=== PATIENT | female | born 1980 | race Caucasian/White ===

== ENCOUNTER 2016-10-08 16:08 | Emergency (ER) | payer OTHER ==
[~2016-10-08] VITALS: Ht 162.6 cm; Wt 64.8 kg
[~2016-10-08 16:08] MED LIST: AMLO5TAB2 PO; IBUP800T23 PO
[2016-10-08 16:23] VITALS: BP 132/88; PULSE 68; RESP 16; TEMP 97.8; O2SAT 100
--- NOTE | 2016-10-08 16:38 | PD ---
HPI Chief Complaint: Injury Time Seen by Provider: 16:35 Travel History International Travel<30 days: No Contact w/Intl Traveler<30days: No Traveled to known affect area: No History of Present Illness HPI 36-year-old right-hand dominant female presents to the ED for evaluation of 8/ 10 left wrist pain. Onset yesterday afternoon. Patient states that she was attempting to steal a car that the parasternal had gone out on when she felt a pain in the lateral aspect of her left wrist. She states she feels "like a bone is rubbing." She denies numbness, tingling, weakness. She endorses pain with attempted range of motion. She denies loss of strength. She denies previous injury to this same area. He states took ibuprofen last night with no improvement of her pain. PFSH Past Medical History Autoimmune Disease: Yes (RHEUMATOID ARTHRITIS) Cardiovascular Problems: Yes (htn on meds) Diminished Hearing: No Hypertension: Yes ?: Not LMP: 10/07/16 Past Surgical History Other Surgery: Yes (LEFT BREAST CYST REMOVED) Social History Alcohol Use: Yes (1-2 X PER YEAR) Tobacco Use: No Substance Use: No Allergies-Medications (Allergen,Severity, Reaction): Coded Allergies: Blistex (Verified Allergy, Severe, BLISTERS, 10/08/16) Reported Meds & Prescriptions Reported Meds & Active Scripts Active Flexeril (Cyclobenzaprine HCl) 7.5 Mg Tab 7.5 Mg PO TID Ibuprofen 800 Mg Tab 800 Mg PO Q8H Reported Ibuprofen 800 Mg Tab 800 Mg PO Q8H PRN Amlodipine (Amlodipine Besylate) 5 Mg Tab 5 Mg PO DAILY Review of Systems Except as stated in HPI: all other systems reviewed are Neg Physical Exam Narrative GENERAL: Well-nourished, well-developed white female in no acute distress. SKIN: Focused skin assessment warm/dry. HEAD: Normocephalic. EYES: No scleral icterus. No injection or drainage. NECK: Supple, trachea midline. No JVD or lymphadenopathy. CARDIOVASCULAR: Regular rate and rhythm without murmurs, gallops, or rubs. RESPIRATORY: Breath sounds equal bilaterally. No accessory muscle use. GASTROINTESTINAL: Abdomen soft, non-tender, nondistended. MUSCULOSKELETAL: No cyanosis, or edema. Focused left upper extremity exam: 2+ radial pulse. No ecchymosis or edema. Tender to palpation of the mid shaft of the lateral aspect of the ulna. No snuffbox tenderness. Supination elicits pain. Patient is able to flex and extend the fingers, wrist and elbow without pain. Sensation intact to light touch and cap refill less than 2 seconds on each digit. BACK: Nontender without obvious deformity. No CVA tenderness. Data Data Last Documented VS Vital Signs Date Time Temp Pulse Resp B/P Pulse Ox O2 Delivery O2 Flow Rate FiO2 10/08/16 16:23 97.8 68 16 132/88 100 Orders Forearm (2vws) (10/08/16 16:34) Wrist, Complete ([id number]) (10/08/16 16:34) Ice/Cold Pack (10/08/16 16:34) ^ Noé Bandage (10/08/16 17:17) MDM Medical Decision Making Medical Screen Exam Complete: Yes Emergency Medical Condition: Yes Differential Diagnosis Contusion versus muscular skeletal pain versus ligamentous injury versus fracture versus other Narrative Course 36-year-old right-hand dominant female presents to the ED for evaluation of 8/ 10 left wrist pain. Onset yesterday afternoon. Patient states that she was attempting to steal a car that the parasternal had gone out on when she felt a pain in the lateral aspect of her left wrist. She states she feels "like a bone is rubbing." She denies numbness, tingling, weakness. She endorses pain with attempted range of motion. She denies loss of strength,previous injury to this same area. Vitals reviewed. Physical exam reveals a 2+ radial pulse. No ecchymosis or edema. Tender to palpation of the mid shaft of the lateral aspect of the ulna. No snuffbox tenderness. Supination elicits pain. Patient is able to flex and extend the fingers, wrist and elbow without pain. Sensation intact to light touch and cap refill less than 2 seconds on each digit. Ice pack was applied. X-rays of the wrist and forearm negative for acute bony injury per radiology read. This is musculoskeletal pain possible muscle strain. Noé wrap was applied. She was prescribed a short course of anti -inflammatories and muscle relaxants. She is instructed to the medication as prescribed, rest, ice, elevate the extremity, follow up with the primary care provider. She indicated understanding of instructions. She is agreeable to the plan of care. She is stable and discharged home. Diagnosis Primary Impression: Musculoskeletal pain of left upper extremity Referrals: Orthopedist Patient Instructions: General Instructions, Musculoskeletal Pain (ED) Additional Instructions: Rest, ice, elevate the extremity. Apply ice no longer than 10-15 minutes per hour a few times a day. 800 mg ibuprofen up to 3 times a day as needed for pain. Flexeril up to 3 times a day as needed for muscle spasm. Do not drive while taking Flexeril. Return to normal, gentle activity as tolerated. Follow up with orthopedist or your primary care provider. Return to the ED for any urgent or emergent medical condition. Scripts Cyclobenzaprine (Flexeril)7.5 Mg Tab7.5 Mg PO TID #12 TAB Ref 0 Prov:Jimmy Brewer MD 10/08/16 Ibuprofen 800 Mg [id number] Mg PO Q8H #15 TAB Ref 0 Prov:Jimmy Brewer MD 10/08/16 Disposition: 01 DISCHARGE HOME Condition: Stable Azeb Ulloa Oct 08, 2016 16:38
--- NOTE | 2016-10-08 17:10 | RADHPO ---
EXAM DATE/TIME: 10/08/2016 16:39 [facility] COMPARISON: No previous studies available for comparison. INDICATIONS : Left distal forearm pain after driving. MEDICAL HISTORY : None. SURGICAL HISTORY : None. ENCOUNTER: Initial ACUITY: 2 days PAIN SCORE: 9/10 LOCATION: Left upper extremity FINDINGS: Two view examination of the left forearm demonstrates no evidence of fracture or dislocation. Bony m ineralization is normal. The soft tissue structures are intact. CONCLUSION: No acute disease. Evelio Perera MD FACR on October 08, 2016 at 17:08 Board Certified Radiologist. This report was verified electronically.
--- NOTE | 2016-10-08 17:11 | RADHPO ---
EXAM DATE/TIME: 10/08/2016 16:44 [facility] COMPARISON: No previous studies available for comparison. INDICATIONS : Left medial wrist pain after driving. MEDICAL HISTORY : None. SURGICAL HISTORY : None. ENCOUNTER: Initial ACUITY: 2 days PAIN SCORE: 9/10 LOCATION: Left upper extremity FINDINGS: Three view examination of the left wrist demonstrates no soft tissue swelling, dislocation, or fractu re. The carpal bones are in normal alignment. The joint spaces are maintained. Bony mineralization is normal. CONCLUSION: Negative for acute process. Evelio Perera MD FACR on October 08, 2016 at 17:08 Board Certified Radiologist. This report was verified electronically.
[2016-10-08] MEDS ORDERED: CYCL7.5T33 PO (17:18)
[2016-10-08] MEDS ORDERED: IBUP800T23 PO (17:18)
[2016-11-05] MEDS ORDERED: AMLO5TAB2 PO (09:57)
[2016-11-05] MEDS ORDERED: IBUP800T23 PO (09:57)
== END 2016-10-08 17:29 | disposition home or self-care (01) ==
LOC: PHEFT 16:08
DX: M79.1 Myalgia (principal); M06.9 Rheumatoid arthritis, unspecified; I10 Essential (primary) hypertension
CPT/HCPCS: 73090; 73110; 99283

== ENCOUNTER → 2016-11-09 | Outpatient (CLI) | payer SELFPAY ==
[2016-11-09 10:13] LABS: MEAN CORPUSCULAR HGB CONC 29.1 % (32.0-36.0)
[2016-11-09 10:44] LABS: AUTOMATED NEUTROPHIL # 4.7 TH/MM3 (1.8-7.7); BASOPHIL # 0.1 TH/MM3 (0-0.2); BASOPHIL % 0.8 % (0.0-2.0); EOSINOPHIL # 0.2 TH/MM3 (0-0.4); LYMPH % 24.5 % (9.0-44.0); LYMPHOCYTE # 1.8 TH/MM3 (1.0-4.8); MEAN CELL VOLUME 65.2 FL (80.0-100.0); MEAN CORPUSCULAR HEMOGLOBIN 18.9 PG (27.0-34.0); MONO % 8.5 % (0.0-8.0); NEUT % 63.2 % (16.0-70.0); PLATELET COUNT 200 TH/MM3 (150-450); RED BLOOD COUNT 4.91 MIL/MM3 (4.00-5.30); RED CELL DISTRIBUTION WIDTH 17.9 % (11.6-17.2); WHITE BLOOD COUNT 7.4 TH/MM3 (4.0-11.0)
[2016-11-09 10:49] LABS: HEMO FLAGS AUTO DIFF
[2016-11-09 10:54] LABS: ALT (GPT) 17 U/L (10-53); ANION GAP 4 MEQ/L (5-15); AST (GOT) 15 U/L (15-37); BICARBONATE 27.8 MEQ/L (21.0-32.0); BLOOD UREA NITROGEN 9 MG/DL (7-18); CHLORIDE 108 MEQ/L (98-107); GLOMERULAR FILTRATION RATE 82 ML/MIN (>89); GLUCOSE,FASTING 94 MG/DL (74-99); POTASSIUM 3.8 MEQ/L (3.5-5.1); SODIUM (NA) 140 MEQ/L (136-145)
[2016-11-09 11:04] LABS: ALKALINE PHOSPHATASE 76 U/L (45-117); LDL CHOLESTEROL 106 MG/DL (0-99); TOTAL BILIRUBIN ADULT 0.4 MG/DL (0.2-1.0)
[2016-11-09 12:04] LABS: SCAN/DIFF AUTO DIFF CONFIRMED
== END ==
LOC: CLAB 10:08
PROVIDERS: ATTEND Nurse Practitioner Family
DX: I10 Essential (primary) hypertension (principal)
CPT/HCPCS: 36415; 80053; 80061; 84443; 85025

== ENCOUNTER → 2016-12-17 | Day surgery (SDC) | payer SELFPAY ==
[~2016-12-17] MED LIST changes: +BUPIVACAINE/EPINEPHRINE 0.5% PF 30 ML VIAL ONE; +LACTATED RINGER'S 1000 ML INJ 1,000 ML ONE; +MIDAZOLAM HCL 2 MG/2 ML VIAL ONE; +ONDANSETRON HCL 4 MG/2 ML VIAL IV PUSH ONE; +PROPOFOL 200 MG/20 ML AMP IV ONE; +ceFAZolin 2 GM PREMIX 50 ML ONE
--- NOTE | 2016-12-17 11:12 | TN ---
cc: AMANDA MALIK M.D. DATE OF SURGERY 12/17/2016 PREOPERATIVE DIAGNOSIS Intraductal papilloma left breast. POSTOPERATIVE DIAGNOSIS Intraductal papilloma left breast. PROCEDURE PERFORMED Needle-localized left breast lumpectomy. SURGEON Amanda Malik MD UNDERWRITING SUPPORT SPECIALIST Isidra Hunt MS-3 ANESTHESIA General LMA COMPLICATIONS None INDICATIONS FOR THE PROCEDURE Mr. Linares is a pleasant 36-year-old female who had a palpable mass in her left breast. She underwent imaging and was found to have an 8 mm mass. She underwent ultrasound guided biopsy and this was found to be the usual ductal hyperplasia, as well as an intraductal papilloma. Because of the papilloma was not completely excised, it was recommended she have a formal excision. The patient had some funding issues and was unable to schedule surgery for approximately one year. She recently returned to the office and she was evaluated for a needle-localized lumpectomy. The risks and benefits of this was discussed with her and she was agreeable. DETAILS The patient was identified, brought to the operating room, placed supine on the table. After adequate general anesthesia was achieved with LMA, the anterior chest and left breast was prepped and draped in standard surgical fashion. Quarter percent Marcaine injected in the skin and subcutaneous tissue around the areola. An infra-areolar incision was made about 3 o'clock to 6 o'clock. Subcutaneous tissues were dissected with sharp dissection. Next, the wire was grasped. All surrounding breast tissue was excised down to the level of the base of the wire. The wire was transected at the skin and the specimen was then pulled out. A short stitch was placed superior, long stitch was placed medial and the wire demarcated the lateral margin. Specimen was palpated. There was no obvious mass. The patient did have very dense fibroglandular breast tissue. Specimen was sent to radiology where Dr. Martínez called back stating the clip was within the specimen. Specimen was sent to pathology for analysis. The wound was copiously irrigated with normal saline solution. Lumpectomy cavity was then filled with quarter percent Marcaine. The wound was then closed in two layers using a 3-0 Vicryl and a 4-0 Monocryl. Sterile dressings were applied. The patient was awakened and brought to recovery in stable condition. MD EZEQUIEL De La Torre /10:30 AM /11:02 AM
== END | disposition home or self-care (01) ==
LOC: ESDC 06:14
PROVIDERS: ATTEND Surgery Trauma Surgery
DX: D24.2 Benign neoplasm of left breast (principal)
CPT/HCPCS: 00400; 19125; 88307; J0690; J2250; J2405; J3010; J7120

== ENCOUNTER → 2017-02-17 | Outpatient (CLI) | payer OTHER ==
[~2017-02-17] MED LIST changes: +ACYC200C66 PO; -BUPIVACAINE/EPINEPHRINE 0.5% PF 30 ML VIAL ONE; +HYDR-3133 PO; -LACTATED RINGER'S 1000 ML INJ 1,000 ML ONE; +MEGE40TA PO; -MIDAZOLAM HCL 2 MG/2 ML VIAL ONE; -ONDANSETRON HCL 4 MG/2 ML VIAL IV PUSH ONE; +PAXI30TA7 PO; -PROPOFOL 200 MG/20 ML AMP IV ONE; +TRAZ50TA12 PO; -ceFAZolin 2 GM PREMIX 50 ML ONE
[2017-02-17 10:47] LABS: MEAN CORPUSCULAR HGB CONC 29.8 % (32.0-36.0)
[2017-02-17 11:17] LABS: AUTOMATED NEUTROPHIL # 3.4 TH/MM3 (1.8-7.7); BASOPHIL # 0.1 TH/MM3 (0-0.2); EOSINOPHIL # 0.1 TH/MM3 (0-0.4); EOSINOPHIL % 2.6 % (0.0-4.0); HEMATOCRIT 29.1 % (35.0-46.0); HEMO FLAGS DIFF FINAL; LYMPH % 25.3 % (9.0-44.0); LYMPHOCYTE # 1.4 TH/MM3 (1.0-4.8); MEAN CELL VOLUME 62.9 FL (80.0-100.0); MEAN CORPUSCULAR HEMOGLOBIN 18.8 PG (27.0-34.0); NEUT % 60.1 % (16.0-70.0); PLATELET COUNT 172 TH/MM3 (150-450); RED BLOOD COUNT 4.62 MIL/MM3 (4.00-5.30); RED CELL DISTRIBUTION WIDTH 17.8 % (11.6-17.2); WHITE BLOOD COUNT 5.7 TH/MM3 (4.0-11.0)
[2017-02-17 11:43] LABS: ANION GAP 5 MEQ/L (5-15); AST (GOT) 13 U/L (15-37); BICARBONATE 26.7 MEQ/L (21.0-32.0); BLOOD UREA NITROGEN 7 MG/DL (7-18); CHLORIDE 108 MEQ/L (98-107); GLOMERULAR FILTRATION RATE 76 ML/MIN (>89); GLUCOSE,FASTING 90 MG/DL (74-99); POTASSIUM 3.4 MEQ/L (3.5-5.1); SODIUM (NA) 140 MEQ/L (136-145)
[2017-02-17 11:44] LABS: ALT (GPT) 17 U/L (10-53)
[2017-02-17 11:46] LABS: ALKALINE PHOSPHATASE 83 U/L (45-117); HDL CHOLESTEROL 39.2 MG/DL (40.0-60.0); LDL CHOLESTEROL 112 MG/DL (0-99); TOTAL BILIRUBIN ADULT 0.5 MG/DL (0.2-1.0)
[2017-02-17 16:48] LABS: HEMOGLOBIN A1a 1.2 %; HEMOGLOBIN A1b 1.3 %; HEMOGLOBIN Ao 86.7 %; HEMOGLOBIN LA1C 1.8 %; HEMOGLOBIN P3 3.2 %
== END ==
LOC: CLAB 10:37
PROVIDERS: ATTEND Obstetrics & Gynecology
DX: F32.9 Major depressive disorder, single episode, unspecified (principal); N93.8 Other specified abnormal uterine and vaginal bleeding
CPT/HCPCS: 36415; 80053; 80061; 83036; 84443; 85025

== ENCOUNTER → 2017-04-25 | Day surgery (SDC) | payer OTHER ==
--- NOTE | 2017-04-24 18:54 | MH ---
cc: PRUDENCE DUMONT M.D. DATE OF ADMISSION: 04/25/2017 HISTORY OF PRESENT ILLNESS: The patient is a 37-year-old white female, 0, who came to see me in my office in February with a last menstrual period of February 23. She is not sexually active and she had been reporting over the last four years that her periods have been coming every two to three weeks and at times lasting seven to eight days with very heavy flow. She did have some discomfort with them. She really had not had much workup done because she really did not have an insurance plan. What I did for her in our office is we had an ultrasound from April of 2016 which revealed the uterus to be6.8 x 4.9 x 3.6, heterogeneous echogenicity, no discrete masses. The endometrial complex was 14 mm. The right ovary had a small 1.3 cm cyst. The left ovary had about a 3.9 cm cyst. It was thought maybe it was a complex hemorrhagic cyst. She also underwent a thyroid screening test which came back normal. She also underwent an endometrial biopsy with an ECC that was benign and an endometrium that revealed features suggestive of a polyp. Based on these findings, I recommend that we do a MyoSure D&C for her so we can directionally visualize the endometrial cavity and remove any polyps that may be in there to see if that treats her problem, and she would like to proceed with that. PAST MEDICAL HISTORY: 1. Hypertension. 2. Anemia. 3. Peptic ulcer disease. 4. Anxiety. PAST SURGICAL HISTORY: Breast biopsy that was negative. MEDICATIONS CURRENTLY: 1. Amlodipine. 2. Vistaril. 3. Trazodone. 4. Paxil. ALLERGIES TO MEDICATIONS: None. SOCIAL HISTORY: No tobacco. No alcohol or drug use. She is single and works at [employer]. FAMILY HISTORY: Family history is testicular cancer, thyroid disease, hypertension and elevated cholesterol. GYNECOLOGIC HISTORY: No prior abnormal Pap. No history of STDs. OBSTETRICAL HISTORY: She is a 0. PHYSICAL EXAMINATION: WEIGHT: 130. VITAL SIGNS: Her blood pressure is 122/76, pulse is 76. BREASTS: Without masses, nodes or discharge. CHEST: Clear to auscultation bilaterally. CARDIAC: Regular rate and rhythm without murmurs, rubs or gallops. ABDOMEN: The abdomen is soft, nontender and nondistended. No hepatosplenomegaly. No costovertebral angle tenderness. No hernias. PELVIC EXAM: Vulva and vagina normal. External female genitalia without lesions. Vaginal vault without lesions. Cervix without lesions. The uterus palpates normal size. No adnexal masses or tenderness. ASSESSMENT: Dysfunctional uterine bleeding with biopsy suggestive of endometrial polyps. PLAN: MyoSure. MD MOHSEN Steele/JCC /6:28 PM /6:42 PM
[~2017-04-25] VITALS: Ht 162.6 cm; Wt 58.8 kg
[~2017-04-25] MED LIST changes: +ACETAMINOPHEN 1000 MG/100 ML 100 ML IV ONE; +CHLORHEXIDINE GLUCONATE 2 % 1 PACK (2 CLOTHS) TOPICAL PRN; +DEXAMETHASONE SOD PHOS 4 MG/ML VIAL IV ONE; +DO NOT ADM ANY ANTICOAGULANT DRUGS PRN; +INSULIN HUMAN REGULAR 1,000 UNITS/10 ML VIAL SQ PRN; +KETOROLAC TROMETHAMINE 30 MG/ML (IVP) VIAL IV PUSH ONE; +KETOROLAC TROMETHAMINE 30 MG/ML (IVP) VIAL ONE; +LACTATED RINGER'S 1000 ML INJ 1,000 ML IV ONE; +LACTATED RINGER'S 1000 ML IV PRN; +LIDOCAINE HCL 1% PF 5 ML AMPULE OTHER ONE; +METOPROLOL TARTRATE 25 MG TAB PO PRN; +MIDAZOLAM HCL 2 MG/2 ML VIAL IV ONE; +ONDANSETRON HCL 4 MG/2 ML VIAL IV PUSH ONE; +POVIDONE IODINE 5% (ANTISEPSIS KIT) 4 APPLICATIONS EACH NARE PRN; +PROPOFOL 200 MG/20 ML AMP IV ONE; +SODIUM CHLORID 0.9% 500 ML INJ 500 ML IV SCH; +SODIUM CHLORID 0.9% 500 ML IV PRN; +oxyCODONE/ACETAMINOPHEN 5 MG/325 MG TAB PO PRN
[2017-04-25 09:38] LABS: BASOPHIL # 0.1 TH/MM3 (0-0.2); BASOPHIL % 0.9 % (0.0-2.0); EOSINOPHIL # 0.3 TH/MM3 (0-0.4); HEMO FLAGS DIFF FINAL; LYMPH % 27.3 % (9.0-44.0); LYMPHOCYTE # 2.3 TH/MM3 (1.0-4.8); MEAN CELL VOLUME 63.1 FL (80.0-100.0); MEAN CORPUSCULAR HGB CONC 30.1 % (32.0-36.0); MONO % 10.3 % (0.0-8.0); NEUT % 58.5 % (16.0-70.0); PLATELET COUNT 188 TH/MM3 (150-450); RED BLOOD COUNT 5.07 MIL/MM3 (4.00-5.30); RED CELL DISTRIBUTION WIDTH 18.9 % (11.6-17.2); WHITE BLOOD COUNT 8.5 TH/MM3 (4.0-11.0)
[2017-04-25 14:39] VITALS: BP 104/61; PULSE 67; RESP 18; TEMP 98; O2SAT 99
--- NOTE | 2017-04-26 10:04 | MP ---
cc: PRUDENCE DUMONT M.D. DATE OF SURGERY 04/25/2017 PREOPERATIVE DIAGNOSIS Menorrhagia with dysfunctional uterine bleeding suspected endometrial polyp. POSTOPERATIVE DIAGNOSIS Menorrhagia with dysfunctional uterine bleeding suspected endometrial polyp. PROCEDURE PERFORMED MyoSure D&C. PERSHING MISSILE CREWMEMBER Dr. Prudence Dumont ANESTHESIA General by facemask FINDINGS IN SURGERY Included an endometrial polyp noted. BLOOD LOSS Minimal COMPLICATIONS No complications. PROCEDURE IN DETAIL After proper consents were obtained, the patient was taken to the operating room where general by face mask anesthesia was applied. She was then placed in the dorsolithotomy position, sterilely prepped and draped and her bladder was drained. At this time, a weighted speculum was placed in the vaginal vault. The anterior lip of the cervix was grasped with a single-tooth tenaculum. We sounded the uterus to about 8 cm. We then dilated the cervix serially to Eduarda dilator #18. We then placed the MyoSure scope using normal saline as a distending medium into the uterine cavity. Visualization revealed that she had a lower segment polyp all else was normal. We went ahead and use the MyoSure instrument to remove the polyp under direct visualization. I then sample the rest of the endometrial lining. Once that was done, we removed our instrumentation, counts were correct. Hemostasis was assured and the patient was stable to the recovery room. MD MOHSEN Steele/ROSY /7:52 AM /9:54 AM
== END | disposition home or self-care (01) ==
LOC: HSDC 08:32
PROVIDERS: ATTEND Obstetrics & Gynecology
DX: N92.0 Excessive and frequent menstruation with regular cycle (principal); N84.0 Polyp of corpus uteri
CPT/HCPCS: 00952; 58558; 84703; 85025; 88305; J0131; J1100; J1885; J2250; J2405; J3010; J7120

== ENCOUNTER 2017-06-15 12:24 | Emergency (ER) | payer OTHER ==
[~2017-06-15] VITALS: Ht 162.6 cm; Wt 59.0 kg
[~2017-06-15 12:24] MED LIST changes: -ACETAMINOPHEN 1000 MG/100 ML 100 ML IV ONE; -CHLORHEXIDINE GLUCONATE 2 % 1 PACK (2 CLOTHS) TOPICAL PRN; -DEXAMETHASONE SOD PHOS 4 MG/ML VIAL IV ONE; -DO NOT ADM ANY ANTICOAGULANT DRUGS PRN; +IBUP1TAB7 PO; -IBUP800T23 PO; -INSULIN HUMAN REGULAR 1,000 UNITS/10 ML VIAL SQ PRN; -KETOROLAC TROMETHAMINE 30 MG/ML (IVP) VIAL IV PUSH ONE; -KETOROLAC TROMETHAMINE 30 MG/ML (IVP) VIAL ONE; -LACTATED RINGER'S 1000 ML INJ 1,000 ML IV ONE; -LACTATED RINGER'S 1000 ML IV PRN; -LIDOCAINE HCL 1% PF 5 ML AMPULE OTHER ONE; -METOPROLOL TARTRATE 25 MG TAB PO PRN; -MIDAZOLAM HCL 2 MG/2 ML VIAL IV ONE; -ONDANSETRON HCL 4 MG/2 ML VIAL IV PUSH ONE; -POVIDONE IODINE 5% (ANTISEPSIS KIT) 4 APPLICATIONS EACH NARE PRN; -PROPOFOL 200 MG/20 ML AMP IV ONE; -SODIUM CHLORID 0.9% 500 ML INJ 500 ML IV SCH; -SODIUM CHLORID 0.9% 500 ML IV PRN; -oxyCODONE/ACETAMINOPHEN 5 MG/325 MG TAB PO PRN
[2017-06-15 12:27] VITALS: BP 157/76; PULSE 82; RESP 16; TEMP 98.3; O2SAT 99
[2017-06-15] MEDS ORDERED: VALA1TAB PO (12:54)
--- NOTE | 2017-06-15 12:58 | PD ---
HPI Chief Complaint: Skin Problem Time Seen by Provider: 12:46 Travel History International Travel<30 days: No Contact w/Intl Traveler<30days: No Traveled to known affect area: No History of Present Illness HPI 37-year-old female presents to the emergency department complaining of an outbreak of cold sores over the last 2 days. States she was in the sun 2 days ago and developed these blisters. Patient states that she takes acyclovir 200 mg twice a day for prevention however, this has not helped her current outbreak. Patient has not tried any medication for her symptoms. States that they are painful and are only located in the lips. Patient denies fever, chills. Denies any other medical complaint at this time. PFSH Past Medical History Hx Anticoagulant Therapy: No Anemia: Yes Autoimmune Disease: Yes (RHEUMATOID ARTHRITIS) Cancer: No Cardiovascular Problems: Yes (HTN) Diabetes: No Diminished Hearing: No Endocrine: No Genitourinary: Yes (polyps on uterus) Hepatitis: No Hiatal Hernia: No Hypertension: Yes Immune Disorder: No Musculoskeletal: No Neurologic: No Psychiatric: Yes (Dep and Anxiety) Respiratory: No Integumentary: Yes (herpes) Thyroid Disease: No Tetanus Vaccination: Unknown Influenza Vaccination: No ?: Not Past Surgical History Abdominal Surgery: No Cardiac Surgery: No Ear Surgery: No Endocrine Surgery: No Eye Surgery: No Genitourinary Surgery: No Gynecologic Surgery: No Joint Replacement: No Oral Surgery: No Thoracic Surgery: No Other Surgery: Yes (LEFT BREAST CYST REMOVED 2002 and december 2016) Social History Alcohol Use: Yes (1-2 X PER YEAR) Tobacco Use: No Substance Use: No Allergies-Medications (Allergen,Severity, Reaction): Coded Allergies: allantoin (Unverified Allergy, Severe, BLISTERS, 06/15/17) aloe vera (Unverified Allergy, Severe, BLISTERS, 06/15/17) camphor (Unverified Allergy, Severe, BLISTERS, 06/15/17) chamomile flower (Unverified Allergy, Severe, BLISTERS, 06/15/17) dimethicone (Unverified Allergy, Severe, BLISTERS, 06/15/17) herbal complex no. 57 (Unverified Allergy, Severe, BLISTERS, 06/15/17) homosalate (Unverified Allergy, Severe, BLISTERS, 06/15/17) menthol (Unverified Allergy, Severe, BLISTERS, 06/15/17) meradimate (Unverified Allergy, Severe, BLISTERS, 06/15/17) octinoxate (Unverified Allergy, Severe, BLISTERS, 06/15/17) octyl salicylate (Unverified Allergy, Severe, BLISTERS, 06/15/17) oxybenzone (Unverified Allergy, Severe, BLISTERS, 06/15/17) padimate O (Unverified Allergy, Severe, BLISTERS, 06/15/17) petrolatum,hydrophilic (Unverified Allergy, Severe, BLISTERS, 06/15/17) phenol (Unverified Allergy, Severe, BLISTERS, 06/15/17) Reported Meds & Prescriptions Reported Meds & Active Scripts Active Valacyclovir (Valacyclovir HCl) 1,000 Mg Tab 1,000 Mg PO BID 5 Days Acyclovir 200 Mg Cap 200 Mg PO BID PRN Trazodone (Trazodone HCl) 50 Mg Tab 50 Mg PO HS Paxil (Paroxetine HCl) 30 Mg Tab 40 Mg PO HS Amlodipine (Amlodipine Besylate) 5 Mg Tab 5 Mg PO DAILY Ibuprofen 800 Mg Tab 800 Mg PO Q8H PRN Reported Megestrol (Megestrol Acetate) 40 Mg Tab 40 Mg PO DAILY Hydroxyzine HCl 25 Mg Tab 25 Mg PO QID PRN Review of Systems Except as stated in HPI: all other systems reviewed are Neg Physical Exam Narrative GENERAL: Well-nourished, well-developed patient. SKIN: Focused skin assessment warm/dry. HEAD: Normocephalic. EYES: No scleral icterus. No injection or drainage. MOUTH: Mucous membranes moist, no lesions, tongue and gums appear normal. Lips with multiple bulla with mild erythematous base, no lymphangitic Spread, no edema. NECK: Supple, trachea midline. No JVD or lymphadenopathy. CARDIOVASCULAR: Regular rate and rhythm without murmurs, gallops, or rubs. RESPIRATORY: Breath sounds equal bilaterally. No accessory muscle use. MUSCULOSKELETAL: No cyanosis, or edema. BACK: Nontender without obvious deformity. No CVA tenderness. Data Data Last Documented VS Vital Signs Date Time Temp Pulse Resp B/P (MAP) Pulse Ox O2 Delivery O2 Flow Rate FiO2 06/15/17 12:27 98.3 82 16 157/76 (103) 99 Orders Orders Ed Discharge Order (06/15/17 12:58) [facility] Medical Decision Making Medical Screen Exam Complete: Yes Emergency Medical Condition: Yes Differential Diagnosis Herpes labialis versus aphthous ulcers versus cellulitis Narrative Course 37-year-old female presents to the emergency department complaining of an outbreak of cold sores over the last 2 days. States she was in the sun 2 days ago and developed these blisters, as she normally does. Patient states that she takes acyclovir 200 mg twice a day for prevention however, this has not helped her current outbreak. Patient has not tried any medication for her symptoms. States that they are painful and are only located in the lips. Patient denies fever, chills. Denies any other medical complaint at this time. Vital signs stable H&P consistent with cold sores without evidence of cellulitis. Patient to hold acyclovir and take valacyclovir at this medication has helped her before. Also advise her to use Abreva and Tylenol or Motrin per package instructions for pain relief. Follow-up with primary care physician within 2-3 days. Return to the emergency department for worsening or persistent symptoms. Diagnosis Primary Impression: Cold sore Referrals: Primary Care Physician Additional Instructions: Hold acyclovir until we have completed valacyclovir. Physical medication as prescribed. May use [id number] Abreva for your symptom relief. You may also use Tylenol or Motrin per package instructions for pain relief. Follow-up with your primary care physician within 2-3 days Scripts Valacyclovir (Valacyclovir) 1,000 Mg Tab 1000 MG PO BID for Mgmt Viral Infection for 5 Days, #1 TAB 0 Refills Prov: Jimmy Brewer MD 06/15/17 Disposition: 01 DISCHARGE HOME Condition: Stable Mariam Ahuja Jun 15, 2017 12:58
== END 2017-06-15 13:50 | disposition home or self-care (01) ==
LOC: PHEFT 12:24
DX: B00.1 Herpesviral vesicular dermatitis (principal); M06.9 Rheumatoid arthritis, unspecified; I10 Essential (primary) hypertension
CPT/HCPCS: 99283

== ENCOUNTER 2017-07-22 08:31 | Emergency (ER) | payer OTHER ==
[~2017-07-22] VITALS: Ht 162.6 cm; Wt 62.8 kg
[~2017-07-22 08:31] MED LIST changes: +VALA1TAB PO
[2017-07-22 08:35] VITALS: BP 118/59; PULSE 69; RESP 20; TEMP 98.1; O2SAT 100
--- NOTE | 2017-07-22 09:15 | PD ---
HPI Chief Complaint: Flank/Kidney Pain Time Seen by Provider: 08:53 Travel History International Travel<30 days: No Contact w/Intl Traveler<30days: No Traveled to known affect area: No History of Present Illness HPI 37-year-old female states she had a random cough Shani and since then has had significant pain over her right rib and felt like something popped. She states she's had a cracked rib before and this feels similar. She states she's been trying Motrin without relief. She denies any other concurrent complaints. She states she is around sick contacts but denies any other symptoms for herself. She denies any modifying factors other than movement. Duration is 3 days. Quality is sharp. Severity is severe per patient. PFSH Past Medical History Hx Anticoagulant Therapy: No Anemia: Yes Autoimmune Disease: Yes (RHEUMATOID ARTHRITIS) Cancer: No Cardiovascular Problems: Yes (HTN) Diabetes: No Diminished Hearing: No Endocrine: No Genitourinary: Yes (polyps on uterus) Hepatitis: No Hiatal Hernia: No Hypertension: Yes Immune Disorder: No Musculoskeletal: No Neurologic: No Psychiatric: Yes (Dep and Anxiety) Respiratory: No Integumentary: Yes (herpes) Thyroid Disease: No ?: Not LMP: CURRENT Past Surgical History Abdominal Surgery: No Cardiac Surgery: No Ear Surgery: No Endocrine Surgery: No Eye Surgery: No Genitourinary Surgery: No Gynecologic Surgery: No Joint Replacement: No Oral Surgery: No Thoracic Surgery: No Other Surgery: Yes (LEFT BREAST CYST REMOVED 2002 and december 2016) Social History Alcohol Use: Yes (1-2 X PER YEAR) Tobacco Use: No Substance Use: No Allergies-Medications (Allergen,Severity, Reaction): Coded Allergies: allantoin (Unverified Allergy, Severe, BLISTERS, 07/22/17) aloe vera (Unverified Allergy, Severe, BLISTERS, 07/22/17) camphor (Unverified Allergy, Severe, BLISTERS, 07/22/17) chamomile flower (Unverified Allergy, Severe, BLISTERS, 07/22/17) dimethicone (Unverified Allergy, Severe, BLISTERS, 07/22/17) herbal complex no. 57 (Unverified Allergy, Severe, BLISTERS, 07/22/17) homosalate (Unverified Allergy, Severe, BLISTERS, 07/22/17) menthol (Unverified Allergy, Severe, BLISTERS, 07/22/17) meradimate (Unverified Allergy, Severe, BLISTERS, 07/22/17) octinoxate (Unverified Allergy, Severe, BLISTERS, 07/22/17) octyl salicylate (Unverified Allergy, Severe, BLISTERS, 07/22/17) oxybenzone (Unverified Allergy, Severe, BLISTERS, 07/22/17) padimate O (Unverified Allergy, Severe, BLISTERS, 07/22/17) petrolatum,hydrophilic (Unverified Allergy, Severe, BLISTERS, 07/22/17) phenol (Unverified Allergy, Severe, BLISTERS, 07/22/17) Reported Meds & Prescriptions Reported Meds & Active Scripts Active Skelaxin (Metaxalone) 800 Mg Tablet 800 Mg PO HS Acyclovir 200 Mg Cap 200 Mg PO BID PRN Paxil (Paroxetine HCl) 30 Mg Tab 40 Mg PO HS Amlodipine (Amlodipine Besylate) 5 Mg Tab 5 Mg PO DAILY Ibuprofen 800 Mg Tab 800 Mg PO Q8H PRN Reported Hydroxyzine HCl 25 Mg Tab 25 Mg PO QID PRN Review of Systems Except as stated in HPI: all other systems reviewed are Neg Physical Exam Narrative GENERAL: Well-nourished, well-developed patient. SKIN: Warm and dry. HEAD: Normocephalic and atraumatic. EYES: No injection or drainage. ENT: No nasal drainage noted. NECK: Supple, trachea midline. CARDIOVASCULAR: Regular rate and rhythm RESPIRATORY: Breath sounds equal bilaterally. No accessory muscle use. GASTROINTESTINAL: Abdomen soft, non-tender, nondistended. EXTREMITIES: No edema. BACK: Nontender without obvious deformity. NEUROLOGICAL: Awake and alert. Motor and sensory grossly within normal limits. Normal speech. Data Data Last Documented VS Vital Signs Date Time Temp Pulse Resp B/P (MAP) Pulse Ox O2 Delivery O2 Flow Rate FiO2 07/22/17 08:56 20 07/22/17 08:35 98.1 69 118/59 (78) 100 Orders Orders Chest, Pa & Lat (07/22/17 ) Ed Discharge Order (07/22/17 09:31) Ketorolac Inj (Toradol Inj) (07/22/17 09:45) MDM Medical Decision Making Medical Screen Exam Complete: Yes Emergency Medical Condition: Yes Medical Record Reviewed: Yes (past history confirmed) Interpretation(s) cxr no acute Differential Diagnosis Rib fracture, contusion, pneumothorax, URI Narrative Course Will check chest x-ray and reevaluate cxr no acute, Patient denies any new complaints, all questions answered. Patient knows that follow up is incumbent on them and to return to the emergency room immediately if new or worsening symptoms develop. Patient given strict return precautions, vitals reviewed and are normal, agrees to further workup as an outpatient. Diagnosis Primary Impression: Chest wall pain Patient Instructions: General Instructions Additional Instructions: return as needed, alternate tylenol and motrin, follow with primary Med/Other Pt SpecificInfo: Prescription(s) given Scripts Metaxalone (Skelaxin) 800 Mg Tablet 800 MG PO HS, #15 Prov: Mi Thomas MD 07/22/17 Disposition: 01 DISCHARGE HOME Condition: Stable Mi Thomas MD Jul 22, 2017 09:15
--- NOTE | 2017-07-22 09:27 | RADRPT ---
EXAM DATE/TIME: 07/22/2017 09:10 [facility] COMPARISON: No previous studies available for comparison. INDICATIONS : Right side rib pain under breast, patient coughed the other day and heard a pop. MEDICAL HISTORY : None. SURGICAL HISTORY : None. ENCOUNTER: Initial ACUITY: 4 - 6 days PAIN SCORE: 10/10 LOCATION: Right ribs FINDINGS: PA and lateral views of the chest demonstrate the lungs to be symmetrically aerated without evidence of mass, infiltrate or effusion. The cardiomediastinal contours are unremarkable. Osseous structure s are intact. CONCLUSION: No acute disease. Evelio Perera MD FACR on July 22, 2017 at 9:24 Board Certified Radiologist. This report was verified electronically.
[2017-07-22] MEDS ORDERED: META800 PO (09:34)
[2017-07-22] MEDS ORDERED: KETOROLAC TROMETHAMINE 60 MG/2 ML (IM) VIAL IM ONE (09:45)
== END 2017-07-22 09:53 | disposition home or self-care (01) ==
LOC: PHED 08:31
DX: R07.89 Other chest pain (principal); R05 Cough; I10 Essential (primary) hypertension; M06.9 Rheumatoid arthritis, unspecified; F41.8 Other specified anxiety disorders; B00.9 Herpesviral infection, unspecified; Z86.2 Personal history of diseases of the blood and blood-forming organs and certain disorders involving the immune mechanism; Z87.448 Personal history of other diseases of urinary system
CPT/HCPCS: 71046; 96372; 99284; J1885

== ENCOUNTER 2017-09-14 12:23 | Emergency (ER) | payer OTHER ==
[~2017-09-14] VITALS: Ht 162.6 cm; Wt 63.0 kg
[~2017-09-14 12:23] MED LIST changes: -MEGE40TA PO; +META800 PO; -TRAZ50TA12 PO; -VALA1TAB PO
[2017-09-14 12:24] VITALS: BP 127/74; PULSE 64; RESP 16; TEMP 98.1; O2SAT 100
[2017-09-14] MEDS ORDERED: TRAZ50TA12 PO (12:34)
--- NOTE | 2017-09-14 12:50 | PD ---
HPI Chief Complaint: Cold / Flu Symptoms Time Seen by Provider: 12:35 Travel History International Travel<30 days: No Contact w/Intl Traveler<30days: No Traveled to known affect area: No History of Present Illness HPI 37-year-old female here with cough, nasal congestion, sore throat 1 week. Symptom severity is mild. No aggravating or alleviating factors. No sick contacts reported travel. Denies fever or chills. PFSH Past Medical History Hx Anticoagulant Therapy: No Anemia: Yes Autoimmune Disease: Yes (RHEUMATOID ARTHRITIS) Cancer: No Cardiovascular Problems: Yes (HTN) Diabetes: No Diminished Hearing: No Endocrine: No Genitourinary: Yes (polyps on uterus) Hepatitis: No Hiatal Hernia: No Hypertension: Yes Immune Disorder: No Musculoskeletal: No Neurologic: No Psychiatric: Yes (Dep and Anxiety) Respiratory: No Integumentary: Yes (herpes) Thyroid Disease: No ?: Not LMP: curently Past Surgical History Abdominal Surgery: No Cardiac Surgery: No Ear Surgery: No Endocrine Surgery: No Eye Surgery: No Genitourinary Surgery: No Gynecologic Surgery: No Joint Replacement: No Oral Surgery: No Thoracic Surgery: No Other Surgery: Yes (LEFT BREAST CYST REMOVED 2002 and december 2016) Social History Alcohol Use: Yes (1-2 X PER YEAR) Tobacco Use: No Substance Use: No Allergies-Medications (Allergen,Severity, Reaction): Coded Allergies: allantoin (Unverified Allergy, Severe, BLISTERS, 09/14/17) aloe vera (Unverified Allergy, Severe, BLISTERS, 09/14/17) camphor (Unverified Allergy, Severe, BLISTERS, 09/14/17) chamomile flower (Unverified Allergy, Severe, BLISTERS, 09/14/17) dimethicone (Unverified Allergy, Severe, BLISTERS, 09/14/17) herbal complex no. 57 (Unverified Allergy, Severe, BLISTERS, 09/14/17) homosalate (Unverified Allergy, Severe, BLISTERS, 09/14/17) menthol (Unverified Allergy, Severe, BLISTERS, 09/14/17) meradimate (Unverified Allergy, Severe, BLISTERS, 09/14/17) octinoxate (Unverified Allergy, Severe, BLISTERS, 09/14/17) octyl salicylate (Unverified Allergy, Severe, BLISTERS, 09/14/17) oxybenzone (Unverified Allergy, Severe, BLISTERS, 09/14/17) padimate O (Unverified Allergy, Severe, BLISTERS, 09/14/17) petrolatum,hydrophilic (Unverified Allergy, Severe, BLISTERS, 09/14/17) phenol (Unverified Allergy, Severe, BLISTERS, 09/14/17) Reported Meds & Prescriptions Reported Meds & Active Scripts Active Acyclovir 200 Mg Cap 200 Mg PO BID PRN Paxil (Paroxetine HCl) 30 Mg Tab 40 Mg PO HS Amlodipine (Amlodipine Besylate) 5 Mg Tab 5 Mg PO DAILY Ibuprofen 800 Mg Tab 800 Mg PO Q8H PRN Reported Trazodone (Trazodone HCl) 50 Mg Tab Unknown Dose PO HS Hydroxyzine HCl 25 Mg Tab 25 Mg PO QID PRN Review of Systems Except as stated in HPI: all other systems reviewed are Neg General / Constitutional: No: Fever Eyes: No: Visual changes HENT: Positive: Congestion Respiratory: Positive: Cough Physical Exam Narrative GENERAL: Alert and well-appearing 37-year-old female SKIN: Warm and dry. HEAD: Normocephalic. EYES: No injection or drainage. Ear/nose/throat: Reveal erythema without tonsillar hypertrophy or exudate. Uvula is midline. Airways patent. NECK: Supple CARDIOVASCULAR: Regular rate and rhythm RESPIRATORY: Breath sounds equal bilaterally. No accessory muscle use. No wheezing, rales, rhonchi. GASTROINTESTINAL: Abdomen soft, non-tender, nondistended. MUSCULOSKELETAL: No cyanosis, or edema. BACK: No CVA tenderness. Data Data Last Documented VS Vital Signs Date Time Temp Pulse Resp B/P (MAP) Pulse Ox O2 Delivery O2 Flow Rate FiO2 09/14/17 12:24 98.1 64 16 127/74 (91) 100 MDM Medical Decision Making Medical Screen Exam Complete: Yes Emergency Medical Condition: Yes Differential Diagnosis URI, bronchitis, pneumonia Narrative Course 37-year-old female with mild URI-like symptoms. She is nontoxic appearing. Symptomatic treatment was discussed. Diagnosis Primary Impression: URI (upper respiratory infection) Qualified Codes: J06.9 - Acute upper respiratory infection, unspecified Referrals: Primary Care Physician Departure Forms: Tests/Procedures, Work Release Enter return to work date: Sep 17, 2017 Additional Instructions: [id number] Tylenol and ibuprofen. Disposition: 01 DISCHARGE HOME Condition: Eliza Jaeger Sep 14, 2017 12:49
== END 2017-09-14 13:04 | disposition home or self-care (01) ==
LOC: PHEFT 12:23
DX: J06.9 Acute upper respiratory infection, unspecified (principal); M06.9 Rheumatoid arthritis, unspecified; I10 Essential (primary) hypertension
CPT/HCPCS: 99282